=== PATIENT | female | born 1955 | race Caucasian/White ===

== ENCOUNTER 2018-02-05 20:20 | Emergency (ER) | payer OTHER ==
[~2018-02-05] VITALS: Ht 154.9 cm; Wt 112.5 kg
[2018-02-05] MEDS ORDERED: PLAVIX75 MG (21:01)
[2018-02-05] MEDS ORDERED: ANASTROZOLE1 MG (21:03)
[2018-02-05] MEDS ORDERED: TRIAMTERENE-HC1 EAC1 (21:03)
[2018-02-05] MEDS ORDERED: FORTAMET500 MG (21:04)
[2018-02-05] MEDS ORDERED: FOLIC ACID1 MG (21:05)
[2018-02-05] MEDS ORDERED: ADVAIR HFA 115/12 GM (21:08)
[2018-02-06] MEDS ORDERED: ZYNCOF 20-400120 ML PO (02:49)
[2018-02-06] MEDS ORDERED: ALBUTEROL2.5 MG/3 M IH (02:49)
== END 2018-02-06 03:11 | disposition home or self-care (01) ==
LOC: ER 20:20
DX: J45.998 Other asthma (principal); J11.1 Influenza due to unidentified influenza virus with other respiratory manifestations

== ENCOUNTER 2020-09-18 16:02 | Emergency (ER) | payer OTHER ==
[~2020-09-18] VITALS: Ht 157.5 cm; Wt 73.5 kg
[~2020-09-18 16:02] MED LIST: ADVAIR HFA 115/12 GM; ALBUTEROL2.5 MG/3 M IH; ANASTROZOLE1 MG; FOLIC ACID1 MG; FORTAMET500 MG; PLAVIX75 MG; TRIAMTERENE-HC1 EAC1; ZYNCOF 20-400120 ML PO
[2020-09-18] MEDS ORDERED: BUDESONIDE0.5 MG/2 M IH (20:33)
[2020-09-18] MEDS ORDERED: MUCINEX DM ER1 EAC1 PO (20:33)
[2020-09-18] MEDS ORDERED: LEVOFLOXACIN750 MG PO (20:33)
[2020-09-18] MEDS ORDERED: MEDROLPACK PO (20:33)
[2020-09-18] MEDS ORDERED: IPRAT-ALBUT 0.5-3 ML IH (20:33)
[2020-09-18] MEDS ORDERED: PROMETH-CODEIN 65 ML PO (20:33)
== END 2020-09-18 20:56 | disposition home or self-care (01) ==
LOC: ER 16:02
DX: J20.9 Acute bronchitis, unspecified (principal); Z03.818 Encounter for observation for suspected exposure to other biological agents ruled out